=== PATIENT | male | born 1995 | race African-American/Black ===

== ENCOUNTER 2019-10-28 16:22 | Inpatient (IN) | payer OTHER ==
[~2019-10-28] VITALS: Ht 185.4 cm; Wt 160.6 kg
[2019-10-28] MEDS ORDERED: IBUPROFEN 600MG TABLET PO ONE (17:30)
[2019-10-28] MEDS ORDERED: ASPIRIN 81MG TABLET PO ONE (18:30)
[2019-10-28 19:19] LABS: BASOPHILS % 0.6 % (0.0-2.0); EOSINOPHILS % 2.3 % (0.0-5.0); HEMATOCRIT. 41.1 % (42.0-52.0); LYMPHOCYTES % 38.1 % (20.0-50.0); MEAN CORPUSCULAR HEMOGLOBIN 29.4 pg (28.0-32.0); MEAN CORPUSCULAR VOLUME 86.5 fL (80.0-94.0); MEAN PLATELET VOLUME 7.3 fl (7.4-10.4); MONOCYTES % 8.1 % (2.0-8.0); NEUTROPHILS % 50.9 % (40.0-76.0); PLATELET 323 x1000/uL (130-400); RED BLOOD CELL COUNT 4.75 mill/uL (4.7-6.1); RED CELL DISTRIBUTION WIDTH 12.9 % (11.6-14.6)
[2019-10-28 19:23] LABS: CHLORIDE 109 mEq/L (98-107)
[2019-10-28 19:29] LABS: D-DIMER 0.43 mg/L FEU (<0.50); PARTIAL THROMBOPLASTIN TIME 34.9 sec (23.4-31.0); PROTHROMBIN TIME 10.4 sec (9.6-11.0)
[2019-10-29] VITALS: BP 155/77
[2019-10-29] MEDS ORDERED: ACETAMINOPHEN 325MG TABLET PO PRN (02:15)
[2019-10-29] MEDS ORDERED: MORPHINE SULFATE 2 MG/ML CPJ (NOT FOR IM USE) IV PRN (02:15)
[2019-10-29 04:00] VITALS: BP 152/86
[2019-10-29 08:00] VITALS: BP 135/68
[2019-10-29] MEDS: ENOXAPARIN 40MG/0.4ML SYR SUBCUT SCH ×2 (10:06→21:00)
[2019-10-29] MEDS: ASPIRIN 325MG EC TABLET PO SCH (10:07)
[2019-10-29 12:00] VITALS: BP 138/70
[2019-10-29 16:00] VITALS: BP 140/72
[2019-10-29 20:00] VITALS: BP 138/89
[2019-10-29] MEDS: AMLODIPINE 5MG TABLET PO SCH (21:07)
[2019-10-30] VITALS: BP 113/54
[2019-10-30 04:00] VITALS: BP 137/65
[2019-10-30] MEDS: ASPIRIN 325MG EC TABLET PO SCH (08:59)
[2019-10-30] MEDS: AMLODIPINE 5MG TABLET PO SCH (09:00)
[2019-10-30] MEDS: ENOXAPARIN 40MG/0.4ML SYR SUBCUT SCH (09:00)
[2019-10-30] MEDS ORDERED: AMLO10TA80 MT (10:28)
[2019-10-30] MEDS ORDERED: LEVO50TA MT (10:28)
[2019-10-30] MEDS ORDERED: LEVOTHYROXINE SODIUM 75MCG TABLET PO NR (10:30)
[2019-10-30 15:55] VITALS: BP 146/70
== END 2019-10-30 17:25 | disposition home or self-care (01) | DRG 203 ==
LOC: ER 16:22 → 5WST 21:48 → ENRESERV 22:09 → 5WST 10-29 10:18
PROVIDERS: ADMIT Internal Medicine; ATTEND Internal Medicine
DX: M94.0 Chondrocostal junction syndrome [Tietze] (principal); E87.8 Other disorders of electrolyte and fluid balance, not elsewhere classified; E66.01 Morbid (severe) obesity due to excess calories; I10 Essential (primary) hypertension; E03.9 Hypothyroidism, unspecified; Z68.42 Body mass index [BMI] 45.0-49.9, adult
CPT/HCPCS: 36415; 71045; 80053; 80061; 83880; 84439; 84443; 84484; 85025; 85379; 93005; 93306; 99285; J1650